=== PATIENT | female | born 1960 | race Caucasian/White ===

== ENCOUNTER 2017-10-26 12:59 | Emergency (ER) | payer MEDICARE, MEDICAID ==
[2017-10-26] MEDS ORDERED: oxyCODONE/Acetamin 5/325 MG* TAB PO ONE (13:30)
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
[2017-10-26 13:53] LABS: ABS Basophils 0.1 10^3/ul (0-0.2); ABS Eosinophils 0.3 10^3/ul (0-0.6); ABS Lymphocytes 1.6 10^3/ul (1.0-4.8); ABS Monocytes 0.9 10^3/ul (0-0.8); ABS Nucleated RBC 0 10^3/ul; Eosinophil % 3.8 % (0-6); Hematocrit 38 % (35-47); Hemoglobin 12.6 g/dl (12.0-16.0); Lymphocyte % 17.5 % (25-47); Mean Corpuscular HGB Conc 33 g/dl (31-36); Mean Corpuscular Hemoglobin 28 pg (27-31); Mean Corpuscular Volume 85 fL (80-97); Mean Platelet Volume 6.2 um3 (7.4-10.4); Nucleated Red Blood Cells % 0.1; Platelet Count 254 10^3/ul (150-450); Red Blood Count 4.48 10^6/ul (4.00-5.40); Red Cell Distribution Width 14 % (10.5-15); White Blood Count 8.9 10^3/ul (3.5-10.8)
[2017-10-26 14:06] LABS: EGFR Non-African American 81.2 (>60)
[2017-10-26 14:19] LABS: INR 0.86 (0.77-1.02)
--- NOTE | 2017-10-26 14:45 | RAD ---
Indication: Right leg swelling. Duplex Doppler sonography of the right lower extremity deep venous system was performed. The right common femoral vein demonstrates echogenic material which is nonocclusive. The left common femoral vein demonstrates no evidence of echogenic material. The right proximal greater saphenous vein, proximal deep femoral vein, femoral vein, popliteal vein, posterior tibial veins and peroneal veins appear patent and compressible. IMPRESSION: There is partial thrombus in the right common femoral vein which is nonocclusive.
[2017-10-26] MEDS ORDERED: Apixaban* 5 MG TAB PO ONE (15:11)
[2017-10-26 16:16] VITALS: BP 114/69
== END 2017-10-26 15:45 | disposition home or self-care (01) ==
LOC: ED 12:59
DX: I82.411 Acute embolism and thrombosis of right femoral vein (principal); F41.9 Anxiety disorder, unspecified; K21.9 Gastro-esophageal reflux disease without esophagitis; Z79.899 Other long term (current) drug therapy; Z87.891 Personal history of nicotine dependence; Z88.3 Allergy status to other anti-infective agents
CPT/HCPCS: 36415; 80053; 85025; 85610; 85730; 99283; A9270-GY

== ENCOUNTER 2018-07-05 18:20 | Emergency (ER) | payer OTHER ==
[2018-07-05] MEDS ORDERED: oxyCODONE/Acetamin 5/325 MG* TAB PO ONE (21:50)
[2018-07-05] MEDS ORDERED: Indomethacin CAP* 25 MG CAP PO ONE (21:50)
--- NOTE | 2018-07-05 21:55 | ED ---
Upper Extremity Pain - HPI Summary HPI Summary: Pt is a 57 y/o F presenting to the ED with a chief complaint of R arm pain described as sharp, with rapid onset this afternoon. She had rotator cuff surgery on 05/24/18 and has been in a sling as needed since then, and she starts PT in two weeks. She has been fine, but the pain and edema came back rapidly this afternoon and her prescribed hydrocodone has not helped at all. She has severe pain with movement of her R wrist. She denies fever. - History of Current Complaint Chief Complaint: EDExtremityUpper Stated Complaint: SURGERY 6 WEEKS AGO, RIGHT ARM PAIN/SWOLLEN PER PT Time Seen by Provider: 07/05/18 21:40 Hx Obtained From: Patient Mechanism Of Injury: Other - surgery on 05/24/18 Onset/Duration: Started Hours Ago, Still Present Timing: Constant, Lasting Hours Severity Initially: Severe Severity Currently: Severe Pain Location: Forearm - right, Wrist - right, Hand - right Character: Sharp Aggravating Factor(s): Movement Alleviating Factor(s): Nothing Associated Signs & Symptoms: Positive: Swelling. Negative: Fever - Allergies/Home Medications Allergies/Adverse Reactions: Allergies Allergy/AdvReac Type Severity Reaction Status Date / Time Sulfa (Sulfonamide Allergy Unknown Verified 07/05/18 21:47 Antibiotics) Reaction Details ENVIRONMENTAL Allergy SINUSES Uncoded 07/05/18 21:47 PMH/Surg Hx/FS Hx/Imm Hx Previously Healthy: Yes Endocrine/Hematology History: Reports: Hx Thyroid Disease Denies: Hx Anticoagulant Therapy, Hx Diabetes Cardiovascular History: Denies: Hx Hypertension, Hx Pacemaker/ICD Respiratory History: Reports: Hx Asthma - INHALERS FOR, Hx Chronic Obstructive Pulmonary Disease (COPD) GI History: Reports: Hx Gastroesophageal Reflux Disease - ON MEDICATION FOR History: Denies: Hx Renal Disease Musculoskeletal History: Reports: Hx Arthritis - BACK AND KNEES, Hx Back Problems - right sided low back pain Sensory History: Reports: Hx Cataracts, Hx Contacts or Glasses - GLASSES Denies: Hx Hearing Aid Opthamlomology History: Reports: Hx Cataracts, Hx Contacts or Glasses - GLASSES Neurological History: Comment Only: Other Neuro Impairments/Disorders - pain clinic patient Psychiatric History: Reports: Hx Anxiety - ON MEDICATION FOR, Hx Depression Denies: Hx Panic Disorder - Cancer History Hx Chemotherapy: No Hx Radiation Therapy: No - Surgical History Surgery Procedure, Year, and Place: [place] [place]UB[place]IG[place] - . SURGERY FOR THROAT-REMOVED POLYPS. 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 GENERAL: Patient is a well-developed and nourished female who is lying comfortable in the stretcher. Patient is not in any acute respiratory distress. HEAD AND FACE: No signs of trauma. No ecchymosis, hematomas or skull depressions. No sinus tenderness. EYES: PERRLA, EOMI x 2, No injected conjunctiva, no nystagmus. EARS: Hearing grossly intact. Ear canals and tympanic membranes are within normal limits. MOUTH: Oropharynx within normal limits. NECK: Supple, trachea is midline, no adenopathy, no JVD, no carotid bruit, no c- spine tenderness, neck with full ROM. CHEST: Symmetric, no tenderness at palpation LUNGS: Clear to auscultation bilaterally. No wheezing or crackles. CVS: Regular rate and rhythm, S1 and S2 present, no murmurs or gallops appreciated. ABDOMEN: Soft, non-tender. No signs of distention. No rebound no guarding, and no masses palpated. Bowel sounds are normal. EXTREMITIES: FROM in all major joints, no edema, no cyanosis or clubbing. Tenderness mainly on R wrist with edema of the dorsal hand. NEURO: Alert and oriented x 3. No acute neurological deficits. Speech is normal and follows commands. SKIN: Dry and warm Triage Information Reviewed: Yes Vital Signs On Initial Exam: Initial Vitals Temp Pulse Resp BP Pulse Ox 97.0 F 90 20 146/90 97 07/05/18 18:32 07/05/18 18:32 07/05/18 18:32 07/05/18 18:32 07/05/18 18:32 Vital Signs Reviewed: Yes Diagnostics - Vital Signs Vital Signs Temp Pulse Resp BP Pulse Ox 07/05/18 20:36 98.2 F 84 18 153/84 93 07/05/18 18:32 97.0 F 90 20 146/90 97 - Laboratory Lab Statement: Any lab studies that have been ordered have been reviewed, and results considered in the medical decision making process. Course/Dx - Course Course Of Treatment: Pt is a 57 y/o F presenting to the ED with a chief complaint of R arm pain rapid onset this afternoon. She had rotator cuff surgery on 05/24/18 and has been in a sling as needed since then, and she starts PT in two weeks. The pain and edema were rapid onset this afternoon, and she has severe pain with movement of her R wrist. She denies fever. She will be sent home with instructions to elevate and take medication as needed, as well as follow up with orthopedics tomorrow, and she is agreeable with this plan. She has a dx of gout of R wrist. - Diagnoses Provider Diagnoses: Gout of right wrist Discharge - Sign-Out/Discharge Documenting (check all that apply): Patient Departure Patient Received Moderate/Deep Sedation with Procedure: No - Discharge Plan Condition: Stable Disposition: HOME Referrals: Michael Oconnell MD [Primary Care Provider] - Rachel Pressley MD [Medical Doctor] - Additional Instructions: Please follow up with Dr. Pressley of orthopedics in the morning. Take your prescribed medication as needed for pain. Return to the ED with any new or worsening symptoms. - Attestation Statements Document Initiated by Scribe: Yes Documenting Scribe: Mary Chicas Provider For Whom Scribe is Documenting (Include Credential): Alexus Blanco MD. Scribe Attestation: Mary Stock, scribed for Alexus Blanco MD. on 07/05/18 at 2305. Status of Scribe Document: Ready
[2018-07-05 22:58] VITALS: BP 128/79
== END 2018-07-05 23:17 | disposition home or self-care (01) ==
LOC: ED 18:20
DX: M10.9 Gout, unspecified (principal); Z88.2 Allergy status to sulfonamides; Z87.891 Personal history of nicotine dependence
CPT/HCPCS: 99282; A9270-GY

== ENCOUNTER 2020-07-10 09:11 | Inpatient (IN) ==
[~2020-07-10 09:11] MED LIST: Buffered Lidocaine 1% SYRIN 1 ml INTRADERM ONE; Bupivacaine 0.25% SDV 30 ML ONE; Dexamethasone IV 4 MG/ML VIAL 1 ml VIAL ONE; Lactated Ringers 1000 ml BAG 1,000 ML IV SCH; Lidocaine 2% PF 5 ML VIAL ONE; Methylene Blue 0.5 % 50 MG/10 ML AMP IV ONE; Midazolam 2 mg/2 ml VIAL 1 mg/ml 2 ml VIAL (2 mg) ONE; Ondansetron 4 mg VIAL 2 MG/ML 2 ml VIAL ONE; Propofol 10 MG/ML 20 ML BTL ONE; Rocuronium 50 mg VIAL 10 mg/ml 5 ml VIAL (50 mg) ONE; fentaNYL 250 mcg/5 ml 50 MCG/ML 5 ml VIAL (250 MCG) ONE
[2020-07-10] MEDS ORDERED: ceFAZolin 2 GM PREMIX 2 GM/50 ML BAG ONE (09:34)
[2020-07-10] MEDS ORDERED: Heparin 5000 UNITS/ML 1 mL VIAL ONE (09:34)
[2020-07-10] MEDS ORDERED: ceFAZolin 1 GM ADVAN 1 GM ADDV.VIAL IVPB ONE (09:34)
[2020-07-10] MEDS ORDERED: Rocuronium 50 mg VIAL 10 mg/ml 5 ml VIAL (50 mg) ONE (10:42)
[2020-07-10] MEDS ORDERED: Methylene Blue 0.5 % 50 MG/10 ML AMP IV ONE (11:00)
[2020-07-10] MEDS ORDERED: HYDROmorphone 1 MG/1 ML SYRINGE ONE (12:46)
[2020-07-10] MEDS ORDERED: Ondansetron 4 mg VIAL 2 MG/ML 2 ml VIAL IV PRN ×2 (13:58→14:34)
[2020-07-10] MEDS ORDERED: HYDROmorphone 0.5 MG/0.5 ML SYRINGE IV SLOW PU PRN (13:58)
[2020-07-10] MEDS ORDERED: HYDROmorphone 1 MG/1 ML SYRINGE IV SLOW PU PRN (13:58)
[2020-07-10] MEDS ORDERED: Albuterol HFA INHALER 8 gm MDI INH PRN (14:12)
[2020-07-10] MEDS ORDERED: diPHENhydraMINE IV 50 MG/ML 1 ml VIAL (BENADRYL) IV PRN (14:34)
[2020-07-10] MEDS ORDERED: HYDROmorphone 1 MG/1 ML SYRINGE IV PRN (14:34)
[2020-07-10] MEDS ORDERED: fentaNYL 100 mcg/2 ml 50 MCG/ML VIAL IV PRN (14:34)
[2020-07-10] MEDS ORDERED: HYDROcodone/ACETAMIN 5/325 mg TAB PO PRN (14:34)
[2020-07-10] MEDS: Lactated Ringers 1000 ml BAG 1,000 ML IV SCH ×2 (15:30→22:07)
[2020-07-10] MEDS: Mometasone/Formoter 100/5 MDI INH SCH (19:44)
[2020-07-10] MEDS: Heparin 5000 UNITS/ML 1 mL VIAL SUBCUT SCH (22:05)
[2020-07-11] MEDS: Lactated Ringers 1000 ml BAG 1,000 ML IV SCH ×2 (04:55→11:42)
[2020-07-11] MEDS: Heparin 5000 UNITS/ML 1 mL VIAL SUBCUT SCH ×3 (05:52→22:29)
[2020-07-11] MEDS: Mometasone/Formoter 100/5 MDI INH SCH ×2 (08:33→19:50)
[2020-07-11] MEDS: Pantoprazole VIAL 40 MG VIAL IV SCH (09:06)
[2020-07-11] MEDS ORDERED: Albuterol/Ipratropium NEB.SOL (2.5/0.5 MG) 3 ML NEB.SOLN INH PRN (09:28)
[2020-07-11] MEDS ORDERED: Albuterol HFA INHALER 8 gm MDI INH PRN (09:55)
[2020-07-11] MEDS ORDERED: Mometasone/Formoter 100/5 MDI INH PRN (10:03)
[2020-07-11] MEDS: D5W 1/2 NS KCl 20 meq 1000 ml 1,000 ML IV SCH (17:34)
[2020-07-11] MEDS: HYDROcodone/ACET. 7.5/325 LIQ 15 ML UDC PO PRN (17:35)
[2020-07-12] MEDS: D5W 1/2 NS KCl 20 meq 1000 ml 1,000 ML IV SCH ×2 (00:53→09:01)
[2020-07-12] MEDS: HYDROcodone/ACET. 7.5/325 LIQ 15 ML UDC PO PRN (04:08)
[2020-07-12] MEDS: Heparin 5000 UNITS/ML 1 mL VIAL SUBCUT SCH (06:09)
[2020-07-12] MEDS: Mometasone/Formoter 100/5 MDI INH SCH (07:59)
[2020-07-12] MEDS: Pantoprazole VIAL 40 MG VIAL IV SCH (09:00)
[2020-07-12] MEDS ORDERED: Fluticasone NASAL SPRAY 50MCG 16 gm SPRAY BTL BOTH NARES SCH (09:00)
[2020-07-12 11:56] VITALS: BP 151/82
== END 2020-07-12 13:00 | disposition home or self-care (01) | DRG 621 ==
LOC: AA 09:11 → SSU 15:26
PROVIDERS: ADMIT Surgery; ATTEND Surgery

== ENCOUNTER 2022-03-01 15:32 | Inpatient (IN) ==
[2022-03-01 16:09] LABS: ABS Basophils 0.1 10^3/ul (0-0.2); ABS Eosinophils 0.6 10^3/ul (0-0.6); ABS Lymphocytes 1.2 10^3/ul (1.0-4.8); ABS Neutrophils 3.7 10^3/ul (1.5-7.7); Eosinophil % 9.9 %; Hematocrit 36 % (35-47); Hemoglobin 12.3 g/dL (12.0-16.0); Lymphocyte % 17.8 %; Mean Corpuscular HGB Conc 34 g/dL (31-36); Mean Corpuscular Hemoglobin 29 pg (27-31); Mean Corpuscular Volume 84 fL (80-97); Mean Platelet Volume 5.8 fL (7.4-10.4); Nucleated Red Blood Cells % 0.1; Platelet Count 411 10^3/uL (150-450); Red Blood Count 4.29 10^6 /uL (3.70-4.87); Red Cell Distribution Width 13 % (10-15); White Blood Count 6.5 10^3/uL (3.5-10.8)
[2022-03-01 16:53] LABS: Albumin 3.7 g/dL (3.2-5.2); Albumin/Globulin Ratio 1.3 (1-3); C Reactive Protein 110.83 mg/L (<8.01); Calcium 8.6 mg/dL (8.6-10.3); Creatinine, Serum 0.54 mg/dL (0.51-0.95); Globulin 2.8 g/dL (2-4); Potassium 3.7 mmol/L (3.5-5.0); Total Bilirubin 0.4 mg/dL (0.2-1.0); Total Protein 6.5 g/dL (6.4-8.9); eGFR CKD-EPI 104.7 (>60)
[2022-03-01 17:35] LABS: High Sensitivity Troponin 1 Hr 7 pg/mL (<15)
[2022-03-01] MEDS ORDERED: methylPREDNISolone SOD SUCC 125 mg 2 ML VIAL IV ONE (18:08)
[2022-03-01] MEDS ORDERED: Albuterol/Ipratropium NEB.SOL (2.5/0.5 MG) 3 ML NEB.SOLN INH ONE ×2 (18:08→19:50)
[2022-03-01] MEDS ORDERED: Magnesium Sulfate 2 gm BAG 2 GM/50 ML BAG IVPB ONE (18:09)
[2022-03-01] MEDS ORDERED: Iodixanol (CONTRAST) 320 MG/ML 100 ML SDV IV ONE (18:27)
[2022-03-01] MEDS ORDERED: Albuterol/Ipratropium NEB.SOL (2.5/0.5 MG) 3 ML NEB.SOLN INH PRN (22:24)
[2022-03-01] MEDS ORDERED: Triamcinolone 0.025% OINT 15 GM TUBE TOPICAL PRN (22:35)
[2022-03-01] MEDS: Enoxaparin 40 MG/0.4 ML SYR SUBCUT SCH (23:03)
[2022-03-01] MEDS: Azithromycin 500 mg/250 ml NS 500 MG/250 ML BAG IVPB SCH (23:03)
[2022-03-01] MEDS ORDERED: Furosemide 40 mg/4 ml IV VIAL IV ONE (23:08)
[2022-03-02] MEDS: HYDROcodone/ACETAMIN 5/325 mg TAB PO PRN ×2 (02:01→20:19)
[2022-03-02] MEDS ORDERED: methylPREDNISolone SOD SUCC 40 mg/ml 1 ml VIAL IV SCH (03:30)
[2022-03-02 06:23] LABS: ABS Lymphocytes 0.4 10^3/ul (1.0-4.8); ABS Monocytes 0.1 10^3/ul (0-0.8); ABS Neutrophils 3.7 10^3/ul (1.5-7.7); Hematocrit 38 % (35-47); Hemoglobin 12.5 g/dL (12.0-16.0); Lymphocyte % 9.2 %; Mean Corpuscular HGB Conc 33 g/dL (31-36); Mean Corpuscular Hemoglobin 28 pg (27-31); Mean Corpuscular Volume 84 fL (80-97); Platelet Count 409 10^3/uL (150-450); Red Blood Count 4.53 10^6 /uL (3.70-4.87); Red Cell Distribution Width 13 % (10-15); White Blood Count 4.1 10^3/uL (3.5-10.8)
[2022-03-02 06:54] LABS: Albumin 3.6 g/dL (3.2-5.2); Albumin/Globulin Ratio 1.2 (1-3); Creatinine, Serum 0.53 mg/dL (0.51-0.95); Globulin 2.9 g/dL (2-4); Potassium 3.8 mmol/L (3.5-5.0); Total Bilirubin 0.3 mg/dL (0.2-1.0); Total Protein 6.5 g/dL (6.4-8.9); eGFR CKD-EPI 105.2 (>60)
[2022-03-02] MEDS ORDERED: Dextrose 50% Syringe 50 ml 25 GM/50 ML SYRINGE IV PUSH PRN (08:10)
[2022-03-02] MEDS: [UNRECOGNIZED DRUG - OTHER] PO SCH (10:36)
[2022-03-02] MEDS: FOLIC ACID PO SCH (10:36)
[2022-03-02] MEDS ORDERED: Al Hydrox/Mg Hydrox/Simet LIQ 30 ML UDC PO ONE (14:33)
[2022-03-02] MEDS ORDERED: Al Hydrox/Mg Hydrox/Simet LIQ 30 ML UDC PO PRN (16:03)
[2022-03-02] MEDS ORDERED: Albuterol HFA INHALER 8 gm MDI INH PRN (17:58)
[2022-03-02] MEDS ORDERED: Albuterol/Ipratropium NEB.SOL (2.5/0.5 MG) 3 ML NEB.SOLN INH PRN (18:00)
[2022-03-02] MEDS ORDERED: Mometasone/Formoter 100/5 MDI INH PRN (20:10)
[2022-03-02] MEDS: Enoxaparin 40 MG/0.4 ML SYR SUBCUT SCH (20:20)
[2022-03-02] MEDS ORDERED: CMCS: Simvastatin 10 mg TAB (NF) PO SCH (21:00)
[2022-03-02] MEDS: Azithromycin 500 mg/250 ml NS 500 MG/250 ML BAG IVPB SCH (22:52)
[2022-03-03] MEDS: [UNRECOGNIZED DRUG - OTHER] PO SCH (08:26)
[2022-03-03] MEDS: FOLIC ACID PO SCH (08:26)
[2022-03-03 11:23] VITALS: BP 139/89
== END 2022-03-03 13:10 | disposition home or self-care (01) | DRG 192 ==
LOC: ED 15:32 → SUATTDRO 22:21 → EDHOLD 22:21 → MED 03-02 01:53
PROVIDERS: ADMIT Student in an Organized Health Care Education/Training Program; ATTEND Family Medicine

== ENCOUNTER 2023-06-30 11:10 | Observation (INO) ==
[2023-06-30 11:41] LABS: ABS Basophils 0.1 10^3/uL (0.0-0.1); ABS Eosinophils 0.1 10^3/uL (0.0-0.5); ABS Lymphocytes 2.3 10^3/uL (1.0-4.8); ABS Monocytes 0.9 10^3/uL (0.0-0.9); ABS Neutrophils 6.4 10^3/uL (1.5-7.6); Hematocrit 38.8 % (35-45); Hemoglobin 13.1 g/dL (11.5-14.3); Lymphocyte % 23.8 %; Mean Corpuscular Hgb Conc 33.6 g/dL (31-36); Mean Corpuscular Volume 86.2 fL (80-97); Mean Platelet Volume 6.3 fL (7.5-11.2); Platelet Count 319 10^3/uL (150-450); Red Cell Distribution Width 13.8 % (12-17); White Blood Count 9.7 10^3/uL (3.8-11.8)
[2023-06-30 12:05] LABS: High Sens Troponin Baseline 5 pg/mL (<15)
[2023-06-30 12:29] LABS: ALT 39 U/L (7-52); AST 29 U/L (13-39); Albumin 4.2 g/dL (3.2-5.2); Albumin/Globulin Ratio 1.7 (1-3); Alkaline Phosphatase 74 U/L (35-149); Anion Gap 8 mmol/L (2-16); Blood Urea Nitrogen 13 mg/dL (6-24); CO2 Carbon Dioxide 27 mmol/L (22-32); Calcium 9.2 mg/dL (8.6-10.3); Chloride 105 mmol/L (101-111); Creatinine, Serum 0.62 mg/dL (0.51-0.95); Globulin 2.5 g/dL (2-4); Glucose 92 mg/dL (70-100); Sodium 140 mmol/L (135-145); Total Bilirubin 0.3 mg/dL (0.2-1.0); Total Protein 6.7 g/dL (6.4-8.9); eGFR CKD-EPI 100.6 (>60)
[2023-06-30] MEDS ORDERED: Albuterol/Ipratropium NEB.SOL (2.5/0.5 MG) 3 ML NEB.SOLN INH PRN (12:59)
[2023-06-30 13:18] LABS: High Sensitivity Troponin 1 Hr 5 pg/mL (<15)
[2023-06-30] MEDS: Iohexol 350 (CONTRAST) 500 ML MDV IV ONE (13:38)
[2023-06-30] MEDS: cefTRIAXone 2 gm/50 mL D5W 2 GM/50 ML BAG IV ONE (15:43)
[2023-06-30] MEDS: methylPREDNISolone SOD SUCC 125 mg 2 ML VIAL IV ONE (15:43)
[2023-06-30] MEDS: Azithromycin 500 mg/250 ml NS 500 MG/250 ML BAG IVPB ONE (16:21)
[2023-06-30] MEDS: HYDROcodone/ACETAMIN 5/325 mg TAB PO ONE (16:21)
[2023-06-30] MEDS ORDERED: Albuterol 2.5mg/3 ml (0.083%) NEB.SOLN INH PRN (18:41)
[2023-06-30 18:56] LABS: Rheumatoid Factor < 10 IU/mL (<15)
[2023-06-30] MEDS: Furosemide 20 mg/2 ml IV VIAL IV SLOW PU ONE (19:04)
[2023-06-30] MEDS: Enoxaparin 40 MG/0.4 ML SYR SUBCUT SCH (20:10)
[2023-06-30] MEDS: HYDROcodone/ACETAMIN 5/325 mg TAB PO PRN (23:41)
[2023-07-01] MEDS: Benzocaine/Menthol LOZ MT PRN (05:05)
[2023-07-01] MEDS: Albuterol/Ipratropium NEB.SOL (2.5/0.5 MG) 3 ML NEB.SOLN INH ONE (05:16)
[2023-07-01] MEDS: FLUTICAS/UMECLI/VILANT 100-62.5-25 MDI (NF) INH SCH (07:41)
[2023-07-01 09:16] LABS: Calcium 9.7 mg/dL (8.6-10.3); Creatinine, Serum 0.59 mg/dL (0.51-0.95); Potassium 3.8 mmol/L (3.5-5.0); eGFR CKD-EPI 101.8 (>60)
[2023-07-01 09:50] LABS: ABS Lymphocytes 1.8 10^3/uL (1.0-4.8); ABS Monocytes 0.8 10^3/uL (0.0-0.9); ABS Neutrophils 8.7 10^3/uL (1.5-7.6); ABS Nucleated RBC 0.01 10^3/ul; Hematocrit 40.3 % (35-45); Hemoglobin 13.6 g/dL (11.5-14.3); Lymphocyte % 16.1 %; Mean Corpuscular Hemoglobin 29.1 pg (27-33); Mean Corpuscular Hgb Conc 33.8 g/dL (31-36); Mean Corpuscular Volume 85.9 fL (80-97); Mean Platelet Volume 6.8 fL (7.5-11.2); Nucleated Red Blood Cells % 0.1 %/100WBC (0.0-0.8); Platelet Count 371 10^3/uL (150-450); Red Blood Count 4.69 10^6/uL (3.63-4.92); Red Cell Distribution Width 13.6 % (12-17); White Blood Count 11.4 10^3/uL (3.8-11.8)
[2023-07-01] MEDS ORDERED: guaiFENesin 100 mg/5 ml LIQ unit dose cup PO PRN (09:59)
[2023-07-01] MEDS: Nitroglycerin 0.2 mg/hr PATCH (5 mg) TRANSDERM SCH (10:20)
[2023-07-01] MEDS: Fluticasone NASAL SPRAY 50MCG 16 gm SPRAY BTL INTRANASAL SCH (10:20)
[2023-07-01 13:33] VITALS: BP 156/82
[2023-07-01] MEDS ORDERED: cefTRIAXone 1 gm/50 mL D5W 1 GM/50 ML BAG IV SCH (15:00)
[2023-07-01] MEDS ORDERED: Azithromycin 500 mg/250 ml NS 500 MG/250 ML BAG IVPB SCH (15:00)
== END 2023-07-01 15:55 | disposition home or self-care (01) ==
LOC: EDHOLD 11:10 → ED 11:10 → SUATTDRO 18:10 → MED 20:38
PROVIDERS: ADMIT Internal Medicine; ATTEND Student in an Organized Health Care Education/Training Program